=== PATIENT | female | born 1960 | race Caucasian/White ===

== ENCOUNTER 2019-09-06 12:07 | Emergency (ER) | payer OTHER ==
--- OUTSIDE RECORDS SUMMARY | 2019-09-06 12:12 | XMS REPORT | Continuity of Care Document ---
:1960 External Reference #:[id number] Author Name Preeti Barbosa MD (transmitted by agent of provider Camryn Sigala) Address [address], [place] [address] Care Team Providers Name Role Phone Adelaida Diop MD - Internal Care Team Information News Video Editor Medicine Problems Active Problems Provider Date Tubular adenoma of colon Adelaida Diop M.D. Onset: 02/13/2016 Perimenopausal disorder Adelaida Diop M.D. Onset: 02/13/2016 Osteoarthritis Adelaida Diop M.D. Onset: 02/26/2016 Social History Type Date Description Comments Sex Unknown Tobacco Use Start: Unknown Never Smoked Cigarettes Smoking Status Reviewed: 08/18/19 Never Smoked Cigarettes ETOH Use Rarely consumes alcohol Tobacco Use Start: Unknown Patient has never smoked Recreational Drug Use Denies Drug Use Exercise Type/Frequency Exercises regularly cleans stalls , maintains a barn , horses Walking. Allergies, Adverse Reactions, Alerts Description No Known Drug Allergies Medications Active Medications SIG Qnty Indications Ordering Date Provider Venlafaxine HCL once a day 90tabs N95.8 Adelaida Diop, 06/15/2019 M.D. 25mg Tablets Shingrix intramuscular x 1 1units Adelaida Diop, 05/12/2019 then repeat in 4 M.D. 50mcg/0.5ML months Suspension Rec One Daily Complete 1 po daily Unknown Tablets History Medications Doxycycline Hyclate 2 tablet X 1 2tabs S20.361A Adelaida Diop, 2018 - M.D. 06/16/2019 100mg Tablets Venlafaxine HCL once a day, as 90tabs N95.8 Adelaida Diop, 05/12/2019 - evin Roman 06/15/2019 37.5mg Tablets Immunizations CPT Code Status Date Vaccine Lot # [id number] Given 02/13/2016 Tdap - Tetanus/Diptheria/Acellular Pertussis [id number] Vital Signs Date Vital Result Comment 08/18/2019 2:21pm Height 65 inches 5'5" Weight 166.00 lb Heart Rate 62 /min BP Systolic Sitting 114 mmHg BP Diastolic Sitting 69 mmHg Body Temperature 98.7 F O2 % BldC Oximetry 97 % BMI (Body Mass Index) 27.6 kg/m2 06/15/2019 8:10am Height 65 inches 5'5" Weight 169.00 lb Heart Rate 72 /min BP Systolic Sitting 103 mmHg BP Diastolic Sitting 64 mmHg O2 % BldC Oximetry 97 % BMI (Body Mass Index) 28.1 kg/m2 Results Test Acquired Date Facility Test Result H/L Range Note CBC Auto 05/06/2019 [facility] White Blood 5.6 10^3/uL Normal 3.5-10.[address] [place] [address] [phone] Red Blood Count 4.55 10^6/uL Normal 3.70-4.87 Hemoglobin 13.7 g/dL Normal 12.0-16.0 Hematocrit 41 % Normal 35-47 Mean Corpuscular Volume 89 fL Normal 80-97 Mean Corpuscular Hemoglobin 30 pg Normal 27-31 Mean Corpuscular HGB Conc 34 g/dL Normal 31-36 Red Cell Distribution Width 14 % Normal 10-15 Platelet Count 326 10^3/uL Normal 150-450 Mean Platelet Volume 8.1 fL Normal 7.4-10.4 Abs Neutrophils 3.3 10^3/uL Normal 1.5-7.7 Abs Lymphocytes 1.8 10^3/uL Normal 1.0-4.8 Abs Monocytes 0.4 10^3/uL Normal 0-0.8 Abs Eosinophils 0.1 10^3/uL Normal 0-0.6 Abs Basophils 0.0 10^3/uL Normal 0-0.2 Abs Nucleated RBC 0.0 10^3/uL Granulocyte % 58.2 % Lymphocyte % 32.6 % Monocyte % 7.3 % Eosinophil % 1.4 % Basophil % 0.5 % Nucleated Red Blood Cells % 0.1 Comp Metabolic 05/06/2019 [facility] Sodium 140 mmol/L Normal 135-[address] [place] [address] [phone] Potassium 4.2 mmol/L Normal 3.5-5.0 Chloride 106 mmol/L Normal 101-111 Co2 Carbon Dioxide 28 mmol/L Normal 22-32 Anion Gap 6 mmol/L Normal 2-11 Glucose 90 mg/dL Normal 70-100 Blood Urea Nitrogen 18 mg/dL Normal 6-24 Creatinine 0.71 mg/dL Normal 0.51-0.95 BUN/Creatinine Ratio 25.4 High 8-20 Calcium 9.3 mg/dL Normal 8.6-10.3 Total Protein 6.4 g/dL Normal 6.4-8.9 Albumin 4.0 g/dL Normal 3.2-5.2 Globulin 2.4 g/dL Normal 2-4 Albumin/Globulin Ratio 1.7 Normal 1-3 Total Bilirubin 0.70 mg/dL Normal 0.2-1.0 Alkaline Phosphatase 75 U/L Normal 34-104 Alt 13 U/L Normal 7-52 Ast 16 U/L Normal 13-39 Egfr Non- 84.8 >60 Egfr 102.7 >60 1 1 Because ethnic data is not always readily available, this report includes an eGFR for both -Americans and non- Americans. The National Kidney Disease Education Program (NKDEP) does not endorse the use of the MDRD equation for patients that are not between the ages of 18 and 70, are , have extremes of body size, muscle mass, or nutritional status, or are non- or non-. According to the National Kidney Foundation, irrespective of diagnosis, the stage of the disease is based on the level of kidney function: Stage Description GFR(mL/min/1.73 m(2)) 1 Kidney damage with normal or decreased GFR 90 2 Kidney damage with mild decrease in GFR 60-89 3 Moderate decrease in GFR 30-59 4 Severe decrease in GFR 15-29 5 Kidney failure <15 (or dialysis) Procedures Date Code Description Status 05/12/2019 25784 Admin & Interp Of Health Risk Assessment w/ Patient Completed 12/06/2017 63808875 Colonoscopy Completed 02/24/2016 26061005 Mammogram Completed 10/16/2012 [id number] Colonoscopy Completed Medical Devices Description No Information Available Encounters Type Date Location Provider Dx Diagnosis Office Visit 06/15/2019 [facility] Internal Adelaida Diop, N95.8 Other specified 8:10a Medicine - Alejandro Roman menopausal and perimenopausal disorders S20.361A Insect bite (nonvenomous) of r frnt wl of thorax, init Office Visit 06/03/2019 [facility] Dermatology Latoya L81.4 Other melanin 8:15a MD Esteban hyperpigmentation D22.5 Melanocytic nevi of trunk Office Visit 05/12/2019 8:30a [facility] Internal Adelaida Diop, Z00.00 [facility] for Medicine - Alejandro Roman general adult medical exam w/o abnormal findings N95.8 Other specified menopausal and perimenopausal disorders Z12.31 Encntr screen mammogram for malignant neoplasm of breast L57.0 Actinic keratosis Assessments Date Code Description Provider 08/18/2019 M25.511 Pain in right shoulder Preeti Barbosa MD 06/15/2019 N95.8 Other specified menopausal and Adelaida Diop M.D. perimenopausal disorders 06/15/2019 S20.361A Insect bite (nonvenomous) of right front Adelaida Diop M.D. wall of thorax, initial encounter 06/03/2019 L81.4 Other melanin hyperpigmentation Latoya Orellana MD 06/03/2019 D22.5 Melanocytic nevi of trunk Latoya Orellana MD 05/12/2019 Z00.00 Encounter for general adult medical Adelaida Diop M.D. examination without abnormal findings 05/12/2019 N95.8 Other specified menopausal and Adelaida Diop M.D. perimenopausal disorders 05/12/2019 Z12.31 Encounter for screening mammogram for Adelaida Diop M.D. malignant neoplasm of breast 05/12/2019 L57.0 Actinic keratosis Adelaida Diop M.D. Plan of Treatment 08/18/2019 - Preeti Barbosa MDM25.511 Pain in right shoulderNew Therapy:Physical Therapy Functional Status Description No Information Available Mental Status Description No Information Available Referrals Refer to Dr Reason for Referral Status Appt Date Latoya Orellana MD Sent 06/03/[address] [place] [address] [place] [address] [phone]
[2019-09-06 12:26] VITALS: BP 111/68
--- NOTE | 2019-09-06 13:02 | ED ---
Throat Pain/Nasal Congestion - HPI Summary HPI Summary: 59-year-old white female presents with right ear pain 3 days associated with URI symptoms 1 week. Denies fever chills but has complaints of intermittent right ear pain deep in the ear which is worsening. - History of Current Complaint Chief Complaint: UCGeneralIllness Time Seen by Provider: 09/06/19 12:18 Hx Obtained From: Patient Onset/Duration: Sudden Onset, Lasting Days Associated Signs And Symptoms: Positive: Negative Cough: Nonproductive - Allergies/Home Medications Allergies/Adverse Reactions: Allergies Allergy/AdvReac Type Severity Reaction Status Date / Time No Known Allergies Allergy Verified 09/06/19 12:26 PMH/Surg Hx/FS Hx/Imm Hx Previously Healthy: Yes Endocrine/Hematology History: Denies: Hx Diabetes, Hx Thyroid Disease Cardiovascular History: Denies: Hx Hypertension Respiratory History: Denies: Hx Asthma, Hx Chronic Obstructive Pulmonary Disease (COPD) GI History: Denies: Hx Ulcer - Cancer History Hx Chemotherapy: No Hx Radiation Therapy: No - Surgical History Surgery Procedure, Year, and Place: tubal, bunionectomy to rt foot Infectious Disease History: No Infectious Disease History: Denies: Hx Hepatitis, Hx Human Immunodeficiency Virus (HIV), Traveled Outside the [place] in Last 30 Days - Family History Known Family History: Positive: Non-Contributory - Social History Alcohol Use: Rare Substance Use Type: Reports: None Smoking Status (MU): Never Smoked Tobacco Review of Systems Constitutional: Negative Eyes: Negative Positive: Ear Ache. Negative: Sore Throat Cardiovascular: Negative Positive: Shortness Of Breath Gastrointestinal: Negative Genitourinary: Negative Musculoskeletal: Negative Skin: Negative Neurological: Negative All Other Systems Reviewed And Are Negative: Yes Physical Exam - Summary Physical Exam Summary: Vital Signs Reviewed: Yes Eye Exam: Normal Eyes: Positive: Conjunctiva Clear ENT: Positive: mild Right TM erythema with posterior auricular lymph node tenderness, mild Neck: Positive: Supple Respiratory Exam: Normal Respiratory: Positive: Lungs clear, Normal breath sounds. Cardiovascular Exam: Normal Cardiovascular: Positive: RRR Abdomen: NT/ND Musculoskeletal Exam: Normal Neurological Exam: Normal Psychological Exam: Normal Skin Exam: Normal Vital Signs On Initial Exam: Initial Vitals Temp Pulse Resp BP Pulse Ox 37.2 C 81 18 111/68 98 09/06/19 12:22 09/06/19 12:22 09/06/19 12:22 09/06/19 12:22 09/06/19 12:22 Diagnostics - Vital Signs Vital Signs Temp Pulse Resp BP Pulse Ox 09/06/19 12:22 37.2 C 81 18 111/68 98 - Laboratory Lab Statement: Any lab studies that have been ordered have been reviewed, and results considered in the medical decision making process. EENT Course/Dx - Diagnoses Provider Diagnoses: Middle ear infection Discharge ED - Sign-Out/Discharge Documenting (check all that apply): Patient Departure All imaging exams completed and their final reports reviewed: No Studies - Discharge Plan Condition: Stable Disposition: HOME Prescriptions: Amoxicillin/Clavulanate TAB* [Augmentin TAB 875*] 875 mg PO BID 7 Days #14 tab Patient Education Materials: Ear Infection (ED) Referrals: Adelaida Diop MD [Primary Care Provider] - - Billing Disposition and Condition Condition: STABLE Disposition: Home
== END 2019-09-06 13:00 | disposition home or self-care (01) ==
LOC: UCEAST 12:07
DX: H66.91 Otitis media, unspecified, right ear (principal)
CPT/HCPCS: 99212; G0463